=== PATIENT | male | born 1975 | race Caucasian/White ===

== ENCOUNTER 2024-10-28 06:24 | Day surgery (SDC) | payer BC, SELFPAY ==
[2024-10-28 09:32] LABS: Glucose - Point of Care 150 mg/dl (70-99)
== END 2024-10-28 10:57 | disposition home or self-care (01) ==
LOC: GI 06:24
PROVIDERS: ATTENDING PHYSICIAN Internal Medicine Gastroenterology
DX: Z12.11 Encounter for screening for malignant neoplasm of colon (principal); K64.8 Other hemorrhoids; D12.3 Benign neoplasm of transverse colon; D12.0 Benign neoplasm of cecum; D12.2 Benign neoplasm of ascending colon; D12.4 Benign neoplasm of descending colon
CPT/HCPCS: 45380; 88305; 82962

== ENCOUNTER 2025-06-05 11:54 | Emergency (ER) | payer BC, SELFPAY ==
[2025-06-05 12:01] VITALS: BP 179/114
--- NOTE | 2025-06-05 13:15 | ED.GENMED ---
History of Present Illness
<THEODORE Sims - Last Filed: 06/05/25 16:13>
General
Chief Complaint: Musculo-Skeletal Complaint
Source: patient
Exam Limitations: none
Time Seen by Provider: 06/05/25 12:46
Nursing documentation reviewed up to this point in time: agreed with
History of Present Illness
History of Present Illness:
Patient is a 50-year-old male who presents to the ER complaining of left arm injury. Patient reports prior to arrival he was pushing a car when he felt a sudden pain pop in his left arm. He is right-hand dominant. He c/o of pain to his left elbow
forearm area.
Phy Exam
<THEODORE Sims - Last Filed: 06/05/25 16:13>
General Physical Exam
General Presentation: no apparent distress
General age: appears stated age
General Skin: warm and dry
General Habitus: normal
General Mental: alert
General Hydration: appears well hydrated
Neurological Exam
Neurological Exam: alert and oriented x3
Musculoskeletal Exam
Musculoskeletal Exam: other (LUE with strong pulses intact distal sensation + palpable deformity to medial forearm distal to the elbow no upper arm tenderness )
Skin Exam
Skin Exam: normal color and warm/dry
Psychiatric Exam
Psychiatric Exam: normal mood/affect
Course
<THEODORE Sims - Last Filed: 06/05/25 16:13>
Orders/Labs/Results
Orders:
Orders
06/05/25 12:06
CR Elbow - Left Min 3 Views Urgent
Comment:
Reason For Exam: felt a pop when pushing car, can't extend elbow
06/05/25 13:43
CT Upper Ext W/o Iv Cont Lt Urgent
Comment:
Reason For Exam: elbow /forearm pain
06/05/25 13:55
Ketorolac [Toradol] 30 mg IM NOW STA
06/05/25 15:30
Oxycodone [Roxicodone] 5 mg PO NOW STA
06/05/25 15:31
Acetaminophen [Tylenol] 1,000 mg .ROUTE .STK-MED ONE
06/05/25 15:44
Acetaminophen [Tylenol] 1,000 mg PO NOW STA
06/05/25 15:58
Vital Signs- Treatment ONCE
Frequency: Once
06/05/25 16:07
Sling Left-Treatment ONCE
Vital Signs
Initial and Last Documented VS:
Initial Vital Signs
Temp Pulse Resp BP Pulse Ox
98.6 F 89 18 179/114 100
06/05/25 12:01 06/05/25 12:01 06/05/25 12:01 06/05/25 12:01 06/05/25 12:01
Last Documented Vital Signs
Temp Pulse Resp BP Pulse Ox
98.6 F 74 20 147/84 99
06/05/25 12:01 06/05/25 15:47 06/05/25 15:47 06/05/25 15:47 06/05/25 15:47
Public Relations Supervisor consulted with Physician
Public Relations Supervisor consulted with physician?: Yes
Name of Physician Consulted: Melissa
<Prabha Torres MD - Last Filed: 06/05/25 13:49>
Orders/Labs/Results
Orders:
Orders
06/05/25 12:06
CR Elbow - Left Min 3 Views Urgent
Comment:
Reason For Exam: felt a pop when pushing car, can't extend elbow
06/05/25 13:43
CT Upper Ext W/o Iv Cont Lt Urgent
Comment:
Reason For Exam: elbow /forearm pain
06/05/25 13:55
Ketorolac [Toradol] 30 mg IM NOW STA
06/05/25 15:30
Oxycodone [Roxicodone] 5 mg PO NOW STA
06/05/25 15:31
Acetaminophen [Tylenol] 1,000 mg .ROUTE .STK-MED ONE
06/05/25 15:44
Acetaminophen [Tylenol] 1,000 mg PO NOW STA
06/05/25 15:58
Vital Signs- Treatment ONCE
Frequency: Once
06/05/25 16:07
Sling Left-Treatment ONCE
Vital Signs
Initial and Last Documented VS:
Initial Vital Signs
Temp Pulse Resp BP Pulse Ox
98.6 F 89 18 179/114 100
06/05/25 12:01 06/05/25 12:01 06/05/25 12:01 06/05/25 12:01 06/05/25 12:01
Last Documented Vital Signs
Temp Pulse Resp BP Pulse Ox
98.6 F 74 20 147/84 99
06/05/25 12:01 06/05/25 15:47 06/05/25 15:47 06/05/25 15:47 06/05/25 15:47
<THEODORE Sims - Last Filed: 06/05/25 16:13>
*Radiology
Radiology exam reviewed: radiology read reviewed
*Pulse Oximetry
SaO2: 100
Oxygen Mode of Delivery: Room air
Patient hypoxic: no
*Critical Care Note
Total Time (30-74mins, 75-104mins- exclusive of procedures): Not Applicable
<THEODORE Sims - Last Filed: 06/05/25 16:13>
Patient Management
Discussion with other providers: Mixing Plant Dumper (Rylie Bradford )
ED Attending Note
<THEODORE Sims - Last Filed: 06/05/25 16:13>
-
Portions of this chart may have been created with voice recognition software.� Occasional wrong word or��sound alike� substitutions may have occurred due to the inherent limitations of voice recognition software.
<Prabha Torres MD - Last Filed: 06/05/25 13:49>
ED Attending Note
Patient seen and examined by attending physician: Yes
I performed the substantive portion of visit, reviewed & personally made and approve the management plan that is documented in note by myself or RACHEAL.: Yes
ED Attending Note:
Patient has strong pulses in left upper extremity. Patient has soft tissue tenderness of left elbow, especially medially, as well as his anterior and medial forearm. Patient is able to flex at left elbow to 90 degrees and then states he is unable
to flex it further due to pain. Patient has no humeral or shoulder pain or tenderness. Patient has equal sensation in bilateral upper extremities. Given that patient has such severe pain of left elbow and left forearm, decision made to do a CT to
look for fracture or soft tissue injury. Patient understands we cannot do MRI in ED. Patient is neurovascularly stable
Discharge Plan
Departure
Patient Disposition: Home (Routine Discharge)
Date of Disposition: 06/05/25
Time of Disposition: 15:57
Patient with high blood pressure during this ER visit?: Yes
Covid-19: Not Applicable
Discharge Problem:
Arm injury
Instructions: How to Use a Shoulder Sling, BLOOD PRESSURE
Prescriptions:
New
oxycodone 5 mg tablet
5 mg PO Q8H PRN (Reason: Pain) Qty: 10 0RF
Referrals:
Eryn Quick CRNP [Family Provider]
Anjum Bradford MD [Active, Orthopedics]
Activity Restrictions/Additional Instructions:
As discussed it is possible that you have had a distal biceps tendon injury. Wear sling for support until seen and evaluated by orthopedics. Keep elevate as much as possible. You may remove the sling at night and keep elevated. Ice over the
affected area for the next 24 hours 20 minutes at a time several times a day.
You may take ibuprofen and Tylenol for pain however if needed narcotic pain medicine will be sent to pharmacy take only as directed. This medicine is constipating. No driving or drink alcohol while taking this medication. In addition this
medication will cause constipation please take [id number] laxative while taking this medication.
As discussed please call orthopedics Saturday for an appointment in the next 2-3 days.
Return if any woresning of symptoms
Interventions
Interventions:
*Risk Screen - Suicide Last Done: 06/05/25 12:01
*General Assessment Last Done: 06/05/25 12:01
*Neglect/Abuse Screening Last Done: 06/05/25 12:01
*ED COVID-19 Vaccine History Last Done: 06/05/25 12:01
*ED Influenza Vaccine History Last Done: 06/05/25 12:01
Discharge Date and Time
Print Language: SERBIAN
[2025-06-05] MEDS: TORADOL 30 MG IM (15:23)
[2025-06-05] MEDS: ROXICODONE 5 MG PO (15:43)
[2025-06-05] MEDS: TYLENOL 1000 MG PO (15:44)
[2025-06-05 15:47] VITALS: BP 147/84
== END 2025-06-05 16:37 | disposition home or self-care (01) ==
LOC: EMR 11:54
PROVIDERS: EMERGENCY PHYSICIAN Emergency Medicine; FAMILY PHYSICIAN Nurse Practitioner Primary Care
DX: S59.902A Unspecified injury of left elbow, initial encounter (principal); M79.632 Pain in left forearm; X58.XXXA Exposure to other specified factors, initial encounter; Y93.89 Activity, other specified
CPT/HCPCS: 99284; 96372; 73080; 73200

== ENCOUNTER → 2025-06-10 17:27 | Outpatient (REF) | payer BC, SELFPAY | LOC: MRI 17:27 | PROVIDERS: ATTENDING PHYSICIAN Orthopaedic Surgery; FAMILY PHYSICIAN Nurse Practitioner Primary Care | DX: M25.522 Pain in left elbow (principal) | CPT/HCPCS: 73221 ==